=== PATIENT | female | born 2000 | race African-American/Black ===

== ENCOUNTER 2021-06-12 07:17 | Day surgery (SDC) | payer OTHER ==
[2021-06-12 08:01] VITALS: BMI 27.6
[2021-06-12] MEDS ORDERED: hydrALAZINE 20 MG/ML VIAL SLOW IVP PRN (08:25)
== END 2021-06-12 11:04 | disposition home or self-care (01) ==
LOC: CSHLD/OP 07:17 → CSHLD 09:05 → UNDOADMIN 09:05 → UNDODISIN 10:59 → CSHLD/OP 11:04
PROVIDERS: ATTEND Obstetrics & Gynecology
DX: O47.1 False labor at or after 37 completed weeks of gestation (principal); O99.013 Anemia complicating pregnancy, third trimester; O09.213 Supervision of pregnancy with history of pre-term labor, third trimester; Z86.16 Personal history of COVID-19; Z3A.37 37 weeks gestation of pregnancy
CPT/HCPCS: 85027; 86780; 86850; 86900; 86901; 87340; J2405; J2590; J3105; U0003; U0005

== ENCOUNTER 2021-06-12 16:57 | Inpatient (IN) | payer OTHER ==
[~2021-06-12 16:57] MED LIST: Bupivacaine/Epinephrine 0.25% 30 ML VIAL ONE; Terbutaline Sulfate 1 MG/ML VIAL ONE
[2021-06-12] MEDS ORDERED: hydrALAZINE 20 MG/ML VIAL SLOW IVP PRN (17:27)
[2021-06-12] MEDS ORDERED: Ibuprofen 800 MG TAB PO PRN (17:48)
[2021-06-12] MEDS ORDERED: Lidocaine 1% (PF) 30 ML VIAL SC PRN (17:48)
[2021-06-12] MEDS ORDERED: Ondansetron PF 4 MG/2 ML Vial IVP PRN ×2 (17:48→18:43)
[2021-06-12] MEDS ORDERED: Methylergonovine 0.2 MG/ML VIAL IM PRN (17:48)
[2021-06-12] MEDS ORDERED: Promethazine HCl 25 MG/ML VIAL IM PRN ×2 (17:48→18:43)
[2021-06-12] MEDS ORDERED: Acetaminophen 500 MG TAB PO PRN (17:48)
[2021-06-12] MEDS ORDERED: Misoprostol 200 MCG TAB PR PRN (17:48)
[2021-06-12] MEDS ORDERED: Lactated Ringer's 1,000 ML IV SCH (18:00)
[2021-06-12] MEDS ORDERED: NS w/ Oxytocin 30 units 500 ML IV SCH (18:00)
[2021-06-12] MEDS ORDERED: NS w/ Oxytocin 30 units 500 ML ONE (18:04)
[2021-06-12 18:11] LABS: Mean Corpuscular HGB CONC 30.6 g/dL (32.0-36.0); Mean Corpuscular Volume 88.5 fl (81.6-98.3); Mean Platelet Volume 12.6 fl (7.4-10.4); Platelet Count 216 10x3/uL (150-450); RBC Distribution Width 20.8 % (11.5-14.5); Red Blood Cell (RBC) Count 4.07 10x6/uL (3.90-5.03); White Blood Cell (WBC) Count 9.9 10x3/uL (3.5-10.5)
[2021-06-12] MEDS ORDERED: Fentanyl 2 mcg/Bup 0.1% Cadd 100 ML ONE (18:20)
[2021-06-12 18:38] LABS: Syphilis Antibody Nonreactive (Nonreactive); Syphilis Antibody Index 0.06 S/CO (<1.00 Non-Reactive)
[2021-06-12 18:42] LABS: Hep B Surf Ag Non-Reactive S/CO (NonReactive)
[2021-06-12] MEDS ORDERED: Lactated Ringer's 500 ML IV PRN (18:43)
[2021-06-12] MEDS ORDERED: diphenhydrAMINE 50 MG/ML VIAL IVP PRN (18:43)
[2021-06-12] MEDS ORDERED: Naloxone HCl 0.4 mg/ml Vial IVP PRN ×2 (18:43)
[2021-06-12] MEDS ORDERED: Hydrocerin (Eucerin) Cream 120 gm Jar TOP PRN (18:43)
[2021-06-12] MEDS ORDERED: Acetaminophen 325 MG TAB PO PRN (18:43)
[2021-06-12] MEDS ORDERED: ePHEDrine Sulfate 50 MG/10 ML VIAL SLOW IVP PRN (18:43)
[2021-06-12] MEDS ORDERED: Communication Order-Pharmacy FS SCH (18:45)
[2021-06-12] MEDS ORDERED: Fentanyl 2 mcg/Bupivacaine 0.1% Cassette 100 ML EPIDURAL SCH (18:45)
[2021-06-12 18:51] LABS: HBSAg Index 0.24 S/CO (0-0.99)
[2021-06-12] MEDS ORDERED: Lidocaine 1% (PF) 30 ML VIAL ONE (18:56)
[2021-06-13] VITALS: BMI 27.6
[2021-06-13] MEDS ORDERED: Benzocaine-Menthol 82.5 ML CAN TOP PRN (00:21)
[2021-06-13] MEDS ORDERED: Boostrix 0.5 ML (Tdap) VIAL IM ONE (00:21)
[2021-06-13] MEDS ORDERED: Preparation H Ointment 28 GM TUBE PR PRN (00:21)
[2021-06-13] MEDS ORDERED: Ondansetron PF 4 MG/2 ML Vial IVP PRN (00:21)
[2021-06-13] MEDS ORDERED: Milk Of Magnesia 30 ML UDCUP PO PRN (00:21)
[2021-06-13] MEDS ORDERED: Bisacodyl 10 MG SUPP PR PRN (00:21)
[2021-06-13] MEDS ORDERED: Lanolin Ointment 7 GM TUBE TOP PRN (00:21)
[2021-06-13] MEDS ORDERED: diphenhydrAMINE 25 MG CAP PO PRN (00:21)
[2021-06-13] MEDS ORDERED: Misoprostol 200 MCG TAB VAG PRN (00:21)
[2021-06-13] MEDS ORDERED: hydrALAZINE 20 MG/ML VIAL SLOW IVP PRN (00:21)
[2021-06-13] MEDS ORDERED: NS w/ Oxytocin 30 units 500 ML IV SCH (01:00)
[2021-06-13] MEDS: Ibuprofen 800 MG TAB PO SCH ×3 (05:52→21:12)
[2021-06-13] MEDS: Docusate 100 MG CAP PO SCH ×2 (08:13→21:12)
[2021-06-13] MEDS: Prenatal Vitamin 1 TAB PO SCH (08:13)
[2021-06-13] MEDS: Ferrous Sulfate 325 MG TAB PO SCH ×2 (08:13→17:58)
[2021-06-13 10:51] LABS: SARS-CoV-2 PCR by NAA Not Detected (NotDetected)
[2021-06-14] MEDS: Ibuprofen 800 MG TAB PO SCH (04:22)
[2021-06-14] MEDS: Ferrous Sulfate 325 MG TAB PO SCH (07:40)
[2021-06-14 08:21] VITALS: BP 114/67; TEMP 97.8
[2021-06-14] MEDS: Prenatal Vitamin 1 TAB PO SCH (08:22)
[2021-06-14] MEDS: Docusate 100 MG CAP PO SCH (08:22)
== END 2021-06-14 12:03 | disposition home or self-care (01) | DRG 807 ==
LOC: CSHLD/OP 16:57 → CSHLD 18:11 → CSHPP 06-13
PROVIDERS: ADMIT Obstetrics & Gynecology; ATTEND Obstetrics & Gynecology
PROC: 10E0XZZ Delivery of Products of Conception, External Approach (ICD-10-PCS; principal; 2021-06-12)
DX: O13.4 Gestational [pregnancy-induced] hypertension without significant proteinuria, complicating childbirth (principal); Z37.0 Single live birth; Z3A.37 37 weeks gestation of pregnancy; O99.02 Anemia complicating childbirth; Z20.822 Contact with and (suspected) exposure to COVID-19; D64.9 Anemia, unspecified; O76 Abnormality in fetal heart rate and rhythm complicating labor and delivery; O99.892 Other specified diseases and conditions complicating childbirth; R00.0 Tachycardia, unspecified
CPT/HCPCS: 85027; 86780; 86850; 86900; 86901; 87340; J2405; J2590; U0003; U0005

== ENCOUNTER 2023-01-13 10:59 | Emergency (ER) | payer OTHER, SELFPAY | END 2023-01-13 12:58 | disposition home or self-care (01) | LOC: CSHERS 10:59 | DX: K02.9 Dental caries, unspecified (principal) | CPT/HCPCS: 99282 ==

== ENCOUNTER 2023-07-02 20:20 | Emergency (ER) | payer MEDICAID, OTHER ==
[2023-07-02] MEDS ORDERED: Ibuprofen 200 MG TAB ONE (22:01)
[2023-07-02] MEDS ORDERED: Acetaminophen 500 MG TAB ONE (22:02)
[2023-07-02] MEDS ORDERED: Boostrix 0.5 ML (Tdap) VIAL (>/=7 yrs of age) ONE (22:02)
== END 2023-07-02 21:56 | disposition home or self-care (01) ==
LOC: CSHERS 20:20
DX: S61.411A Laceration without foreign body of right hand, initial encounter (principal); W26.0XXA Contact with knife, initial encounter; Z23 Encounter for immunization
CPT/HCPCS: 90471; 90715